=== PATIENT | female | born 1940 | race Caucasian/White ===

== ENCOUNTER 2017-06-08 17:38 | Inpatient (IN) | payer MEDICARE ==
[~2017-06-08] VITALS: Ht 167.6 cm; Wt 66.5 kg
[~2017-06-08 17:38] MED LIST: ASPI81 PO; ENAL20TA PO; HYDR12.56 PO; METF-324 PO; PRIL20TA2 PO; SYNT88TA PO
[2017-06-08 17:39] VITALS: BP 171/74; PULSE 81; RESP 18; TEMP 98.2; O2SAT 98
--- NOTE | 2017-06-08 18:22 | PD ---
Physical Exam Date Seen by Provider: Jun 08, 2017 Time Seen by Provider: 18:16 Narrative 76-year-old white female presents to emergency department with complaint of chest pain and foot swelling. She was seen by an orthopedist today to have a cast put on her left arm. She also had gone to an urgent care and was referred to the ER due to her chest pain and foot swelling. No associated nausea vomiting. No diaphoresis. Patient had a recent fall causing her left upper extremity fracture. Vital signs reviewed. Pt waiting for bed placement. Data Data Last Documented VS Vital Signs Date Time Temp Pulse Resp B/P (MAP) Pulse Ox O2 Delivery O2 Flow Rate FiO2 06/08/17 17:39 98.2 81 18 171/74 (106) 98 Room Air [facility] Medical Record Reviewed: No Supervised Visit with JF: Cole [place] Jun 08, 2017 18:22
--- NOTE | 2017-06-08 18:22 | PD ---
Physical Exam Date Seen by Provider: Jun 08, 2017 Time Seen by Provider: 18:16 Narrative 76-year-old white female presents to emergency department with complaint of chest pain and foot swelling. She was seen by an orthopedist today to have a cast put on her left arm. She also had gone to an urgent care and was referred to the ER due to her chest pain and foot swelling. No associated nausea vomiting. No diaphoresis. Patient had a recent fall causing her left upper extremity fracture. Vital signs reviewed. Pt waiting for bed placement. Data Data Last Documented VS Vital Signs Date Time Temp Pulse Resp B/P (MAP) Pulse Ox O2 Delivery O2 Flow Rate FiO2 06/08/17 17:39 98.2 81 18 171/74 (106) 98 Room Air [facility] Medical Record Reviewed: No Supervised Visit with JF: Cole [place] Jun 08, 2017 18:22
--- NOTE | 2017-06-08 18:22 | PD ---
Physical Exam Date Seen by Provider: Jun 08, 2017 Time Seen by Provider: 18:16 Narrative 76-year-old white female presents to emergency department with complaint of chest pain and foot swelling. She was seen by an orthopedist today to have a cast put on her left arm. She also had gone to an urgent care and was referred to the ER due to her chest pain and foot swelling. No associated nausea vomiting. No diaphoresis. Patient had a recent fall causing her left upper extremity fracture. Vital signs reviewed. Pt waiting for bed placement. Data Data Last Documented VS Vital Signs Date Time Temp Pulse Resp B/P (MAP) Pulse Ox O2 Delivery O2 Flow Rate FiO2 06/08/17 17:39 98.2 81 18 171/74 (106) 98 Room Air [facility] Medical Record Reviewed: No Supervised Visit with JF: Cole [place] Jun 08, 2017 18:22
[2017-06-08] MEDS ORDERED: HYDR12.57 PO (19:44)
[2017-06-08] MEDS ORDERED: METF500T PO (19:44)
[2017-06-08] MEDS ORDERED: NEXI20CA PO (19:44)
[2017-06-08] MEDS ORDERED: ASPI81CH CHEW (19:44)
[2017-06-08] MEDS ORDERED: AMLO5TAB2 PO (19:44)
[2017-06-08] MEDS ORDERED: ENAL20TA PO (19:44)
[2017-06-08] MEDS ORDERED: HYDR-3516 PO (19:44)
[2017-06-08] MEDS ORDERED: SODIUM CHLORIDE 0.9% FLUSH 10 ML FLUSH IVF PRN (19:45)
[2017-06-08 19:51] VITALS: BP 194/84; PULSE 84; RESP 18; O2SAT 100
[2017-06-08 19:55] VITALS: PULSE 82; RESP 18; O2SAT 100
--- NOTE | 2017-06-08 20:08 | PD ---
HPI Chief Complaint: Edema Time Seen by Provider: 19:41 Travel History International Travel<30 days: No Contact w/Intl Traveler<30days: No Traveled to known affect area: No History of Present Illness HPI C/O CHEST PAIN ONSET YESTERDAY, DESCRIBED A PRESSURE, INTERMITTENT, SUBSTERNAL, NONRADIATING. PATIENT ALSO C/O SWELLING TO [place]A [place] WE[place], NO REDNESS OR RASH NOTED. PATIENT DENIES ANY ALLEVIATING/AGGRAVATING FACTORS. PATIENT DENIES ABARCA/N/V/CP/ABDPAIN/ CHART AND RN NOTES REVIEWED PMHX: DM, HTN, PSHX: APPY/THYROID REMOVAL/GB/TUBAL LIGATION NO SMOKING HX PFSH Past Medical History Anxiety: No Depression: No Cancer: Yes (THYROIDECTOMY 5 YEARS AGO) Chemotherapy: No Diabetes: Yes GERD: Yes Genitourinary: No Hypertension: Yes Immune Disorder: No Kidney Stones: Yes (20 YEARS AGO) Musculoskeletal: No Neurologic: No Psychiatric: No Reproductive: No Respiratory: No Radiation Therapy: No Menopausal: Yes Tubal Ligation: Yes Past Surgical History Abdominal Surgery: Yes (APPENDECTOMY) Appendectomy: Yes Endocrine Surgery: Yes (THYROID ECTOMY) Social History Alcohol Use: No Tobacco Use: No Substance Use: No Allergies-Medications (Allergen,Severity, Reaction): Coded Allergies: No Known Allergies (Verified Allergy, Unknown, 06/08/17) Reported Meds & Prescriptions Reported Meds & Active Scripts Active Reported Hydrocodone-Acetaminophen 5-325 mg Tab 1 Tab PO Q4H PRN Nexium (Esomeprazole DR) 20 Mg Capdr 20 Mg PO DAILY Aspirin 81 Mg Chew 81 Mg CHEW DAILY Hydrochlorothiazide 12.5 Mg Cap 12.5 Mg PO BID Enalapril (Enalapril Maleate) 20 Mg Tab 20 Mg PO DAILY Amlodipine (Amlodipine Besylate) 5 Mg Tab 5 Mg PO DAILY Metformin (Metformin HCl) 500 Mg Tab 500 Mg PO BIDPC Review of Systems Except as stated in HPI: all other systems reviewed are Neg General / Constitutional: No: Fever Eyes: No: Visual changes HENT: No: Headaches Cardiovascular: Positive: Chest Pain or Discomfort, Edema (1+ TO KAMILA LE) Respiratory: No: Shortness of Breath Gastrointestinal: No: Abdominal Pain Genitourinary: No: Dysuria Musculoskeletal: No: Pain Skin: No Rash Neurologic: No: Weakness Psychiatric: No: Depression Endocrine: No: Polydipsia Hematologic/Lymphatic: No: Easy Bruising Physical Exam Narrative GENERAL: SKIN: Warm and dry. HEAD: Atraumatic. Normocephalic. EYES: Pupils equal and round. No scleral icterus. No injection or drainage. ENT: No nasal bleeding or discharge. Mucous membranes pink and moist. NECK: Trachea midline. No JVD. CARDIOVASCULAR: Regular rate and rhythm. RESPIRATORY: No accessory muscle use. Clear to auscultation. Breath sounds equal bilaterally. GASTROINTESTINAL: Abdomen soft, non-tender, nondistended. Hepatic and splenic margins not palpable. MUSCULOSKELETAL: Extremities without clubbing, cyanosis, or 1+ PITTING edema. No obvious deformities. NEUROLOGICAL: Awake and alert. No obvious cranial nerve deficits. Motor grossly within normal limits. Five out of 5 muscle strength in the arms and legs. Normal speech. PSYCHIATRIC: Appropriate mood and affect; insight and judgment normal. Data Data Last Documented VS Vital Signs Date Time Temp Pulse Resp B/P (MAP) Pulse Ox O2 Delivery O2 Flow Rate FiO2 06/08/17 22:07 89 16 190/86 (120) 100 Room Air 06/08/17 17:39 98.2 Orders Orders Electrocardiogram (06/08/17 18:22) Electrocardiogram (06/08/17 19:41) B-Type Natriuretic Peptide (06/08/17 19:41) Ckmb (Isoenzyme) Profile (06/08/17 19:41) Complete Blood Count With Diff (06/08/17 19:41) Comprehensive Metabolic Panel (06/08/17 19:41) Prothrombin Time / Inr (Pt) (06/08/17 19:41) Act Partial Throm Time (Ptt) (06/08/17 19:41) Troponin I (06/08/17 19:41) Lipase (06/08/17 19:41) Chest, Single Ap (06/08/17 19:41) Ecg Monitoring (06/08/17 19:41) Bilateral Bp Monitoring (06/08/17 19:41) Iv Access Insert/Monitor (06/08/17 19:41) Oximetry (06/08/17 19:41) Oxygen Administration (06/08/17 19:41) Sodium Chloride 0.9% Flush (Ns Flush) (06/08/17 19:45) Ct Pulmonary Angiogram (06/08/17 19:41) CKMB (06/08/17 18:15) CKMB% (06/08/17 18:15) Iohexol 350 Inj (Omnipaque 350 Inj) (06/08/17 21:26) Enoxaparin Inj (Lovenox Inj) (06/08/17 21:45) Amlodipine (Norvasc) (06/09/17 09:00) Aspirin Chew (Aspirin Chew) (06/09/17 09:00) Enalapril (Vasotec) (06/09/17 09:00) Hydrochlorothiazide (Microzide) (06/08/17 22:15) Acetamin-Hydrocod 325-5 Mg ([place] 5-325 (06/08/17 22:15) Pantoprazole (Protonix) (06/09/17 09:00) Insulin Aspart Supplemtl Scale (Novolog (06/09/17 08:00) Enoxaparin Inj (Lovenox Inj) (06/09/17 09:00) Place In Observation (06/08/17 ) Vital Signs (Adult) Q4H (06/08/17 22:08) Activity Oob Ad Lynn (06/08/17 22:08) Poly Packer And Heat Sealer / Telemetry .CONTINUOUS (06/08/17 22:08) Intake + Output MARANDA.QSHIFT (06/08/17 22:08) Sodium Chloride 0.9% Flush (Ns Flush) (06/08/17 22:15) Sodium Chloride 0.9% Flush (Ns Flush) (06/09/17 09:00) Ondansetron Inj (Zofran Inj) (06/08/17 22:15) Comprehensive Metabolic Panel (06/09/17 06:00) Case Management Consult (06/08/17 22:08) Naloxone Inj (Narcan Inj) (06/08/17 22:15) Magnesium Hydroxide Liq (Milk Of Magnesi (06/08/17 22:15) Sennosides (Senokot) (06/08/17 22:15) Bisacodyl Supp (Dulcolax Supp) (06/08/17 22:15) Lactulose Liq (Lactulose Liq) (06/08/17 22:15) Ckmb (Isoenzyme) Profile (06/08/17 22:08) Troponin I (06/08/17 22:08) Electrocardiogram (06/08/17 22:08) Electrocardiogram (06/09/17 01:08) Admit Order (Ed Use Only) (06/08/17 22:06) Diet Heart Healthy (06/09/17 Breakfast) Activity Bed Rest (06/08/17 22:06) Notify Dr: Other (06/08/17 22:06) CKMB (06/08/17 23:08) CKMB% (06/08/17 23:08) Ckmb (Isoenzyme) Profile (06/09/17 01:26) Troponin I (06/09/17 01:26) CKMB (06/09/17 01:26) CKMB% (06/09/17 01:26) Labs Laboratory Tests Test 06/08/17 18:15 White Blood Count 6.3 TH/MM3 Red Blood Count 4.55 MIL/MM3 Hemoglobin 12.4 GM/DL Hematocrit 36.8 % Mean Corpuscular Volume 80.8 FL Mean Corpuscular Hemoglobin 27.2 PG Mean Corpuscular Hemoglobin Concent 33.7 % Red Cell Distribution Width 14.5 % Platelet Count 244 TH/MM3 Mean Platelet Volume 8.2 FL Neutrophils (%) (Auto) 62.9 % Lymphocytes (%) (Auto) 26.0 % Monocytes (%) (Auto) 6.9 % Eosinophils (%) (Auto) 3.4 % Basophils (%) (Auto) 0.8 % Neutrophils # (Auto) 3.9 TH/MM3 Lymphocytes # (Auto) 1.6 TH/MM3 Monocytes # (Auto) 0.4 TH/MM3 Eosinophils # (Auto) 0.2 TH/MM3 Basophils # (Auto) 0.0 TH/MM3 CBC Comment DIFF FINAL Differential Comment Prothrombin Time 10.6 SEC Prothromb Time International Ratio 1.0 RATIO Activated Partial Thromboplast Time 25.9 SEC Blood Urea Nitrogen 16 MG/DL Creatinine 0.79 MG/DL Random Glucose 130 MG/DL Total Protein 7.2 GM/DL Albumin 3.9 GM/DL Calcium Level 9.2 MG/DL Alkaline Phosphatase 52 U/L Aspartate Amino Transf (AST/SGOT) 27 U/L Alanine Aminotransferase (ALT/SGPT) 23 U/L Total Bilirubin 0.7 MG/DL Sodium Level 134 MEQ/L Potassium Level 3.4 MEQ/L Chloride Level 99 MEQ/L Carbon Dioxide Level 26.8 MEQ/L Anion Gap 8 MEQ/L Estimat Glomerular Filtration Rate 71 ML/MIN Total Creatine Kinase 360 U/L Creatine Kinase MB 10.6 NG/ML Creatine Kinase MB % 2.9 % Troponin I LESS THAN 0.02 NG/ML B-Type Natriuretic Peptide 18 PG/ML Lipase 91 U/L MDM Medical Decision Making Medical Screen Exam Complete: Yes Emergency Medical Condition: Yes Medical Record Reviewed: Yes Interpretation(s) NSR 73, LOW VOLTAGE, NONSPEC STT CHANGES, NO STEMI PATTERN NOTED Differential Diagnosis PERICARDIAL EFFUSION V STEMI V NONSTEMI V PE V PNA V PTX Narrative Course NEG TROPONIN, CT CHEST NEG FOR PERICARDIAL EFFUSION SPECIALLY IN LIGHT OF LOW VOLTAGE EKG FINDING. CT CHEST DID SHOW A SMALL PE, PT AND FAMILY MADE AWARE AND UNDERSTAND NEED FOR ADMISSION. Critical Care Narrative CRITICAL CARE NOTE: With evaluation of the patient, labs, EKG, receipt of radiologic studies, administration of medications, reevaluation the patient and discussion of the patient with the admitting physicians, the total critical care time was [30] minutes. Time to perform other separately billable procedures was not included in the critical care time. Diagnosis Primary Impression: Pulmonary embolism Qualified Codes: I26.99 - Other pulmonary embolism without acute cor pulmonale Additional Impression: CHEST PAIN R/O ND Admitting Information Admitting Physician Requests: Martin Elizabeth MD Jun 08, 2017 20:08
[2017-06-08 20:47] LABS: AUTOMATED NEUTROPHIL # 3.9 TH/MM3 (1.8-7.7); BASOPHIL % 0.8 % (0.0-2.0); EOSINOPHIL # 0.2 TH/MM3 (0-0.4); EOSINOPHIL % 3.4 % (0.0-4.0); HEMATOCRIT 36.8 % (35.0-46.0); HEMOGLOBIN 12.4 GM/DL (11.6-15.3); LYMPHOCYTE # 1.6 TH/MM3 (1.0-4.8); MEAN CELL VOLUME 80.8 FL (80.0-100.0); MEAN CORPUSCULAR HEMOGLOBIN 27.2 PG (27.0-34.0); MEAN CORPUSCULAR HGB CONC 33.7 % (32.0-36.0); MEAN PLATELET VOLUME 8.2 FL (7.0-11.0); MONO % 6.9 % (0.0-8.0); MONOCYTE # 0.4 TH/MM3 (0-0.9); NEUT % 62.9 % (16.0-70.0); PLATELET COUNT 244 TH/MM3 (150-450); RED BLOOD COUNT 4.55 MIL/MM3 (4.00-5.30); RED CELL DISTRIBUTION WIDTH 14.5 % (11.6-17.2); WHITE BLOOD COUNT 6.3 TH/MM3 (4.0-11.0)
--- NOTE | 2017-06-08 20:48 | RADRPT ---
EXAM DATE/TIME: 06/08/2017 20:16 [facility] COMPARISON: No previous studies available for comparison. INDICATIONS : Chest pain. MEDICAL HISTORY : Hypertension. Diabetes mellitus type II. SURGICAL HISTORY : Tonsillectomy. ENCOUNTER: Initial ACUITY: 1 day PAIN SCORE: 2/10 LOCATION: chest midline. FINDINGS: A single view of the chest demonstrates the lungs to be symmetrically aerated without evidence of mas s, infiltrate or effusion. The cardiomediastinal contours are unremarkable. Osseous structures are intact. CONCLUSION: No acute disease. Lucas Arevalo MD on June 08, 2017 at 20:46 Board Certified Radiologist. This report was verified electronically.
[2017-06-08 21:00] LABS: PROTHROMBIN TIME - PATIENT 10.6 SEC (9.8-11.6)
[2017-06-08 21:09] LABS: ALBUMIN 3.9 GM/DL (3.4-5.0); ALT (GPT) 23 U/L (10-53); AST (GOT) 27 U/L (15-37); BICARBONATE 26.8 MEQ/L (21.0-32.0); BLOOD UREA NITROGEN 16 MG/DL (7-18); CALCIUM 9.2 MG/DL (8.5-10.1); CHLORIDE 99 MEQ/L (98-107); CREATININE 0.79 MG/DL (0.50-1.00); GLOMERULAR FILTRATION RATE 71 ML/MIN (>89); GLUCOSE,RANDOM 130 MG/DL (74-106); LIPASE 91 U/L (73-393); SODIUM (NA) 134 MEQ/L (136-145)
[2017-06-08 21:14] LABS: ALKALINE PHOSPHATASE 52 U/L (45-117); TOTAL BILIRUBIN ADULT 0.7 MG/DL (0.2-1.0); TOTAL PROTEIN 7.2 GM/DL (6.4-8.2); TROPONIN I LESS THAN 0.02 NG/ML (0.02-0.05)
[2017-06-08] MEDS ORDERED: IOHEXOL 350 MG/ML 10 ML VIAL (for RAD DIAG) IVCONTRAST ONE (21:26)
--- NOTE | 2017-06-08 21:37 | RADRPT ---
EXAM DATE/TIME: 06/08/2017 21:23 [facility] COMPARISON: CHEST SINGLE AP, June 08, 2017, 20:16. INDICATIONS : Swollen feet. IV CONTRAST: 67 cc Omnipaque 350 (iohexol) IV RADIATION DOSE: 23.38 CTDIvol (mGy) MEDICAL HISTORY : Hypertension. Diabetes mellitus type 2. SURGICAL HISTORY : None. ENCOUNTER: Initial ACUITY: 1 day PAIN SCALE: 0/10 LOCATION: chest TECHNIQUE: Volumetric scanning of the chest was performed using a pulmonary embolism protocol MIP images were re constructed. Using automated exposure control and adjustment of the mA and/or kV according to patien t size, radiation dose was kept as low as reasonably achievable to obtain optimal diagnostic quality images. DICOM format image data is available electronically for review and comparison. Follow-up recommendations for detected pulmonary nodules are based at a minimum on nodule size and pa tient risk factors according to Fleischner Society Guidelines. FINDINGS: PULMONARY ARTERIES: The main pulmonary artery right and left branch vessels are intact. There is a small area of filling defect and embolism in one of the right lower lobe pulmonary arteries. LUNGS: There is no consolidation or pneumothorax . No concerning pulmonary nodule is visualized. PLEURAE: There is no pleural thickening or pleural effusion. MEDIASTINUM: There is good visualization of the great vessels of the middle mediastinum. No evidence of mediastin al or hilar adenopathy/mass. MUSCULOSKELETAL: Within normal limits for patient age. MISCELLANEOUS: The visualized upper abdominal organs demonstrate no acute abnormality. There is a moderate-sized ret rocardiac hiatal hernia. CONCLUSION: 1. Mild pulmonary embolism in the right lower lobe pulmonary arteries. 2. No evidence of congestive heart failure. Lucas Arevalo MD on June 08, 2017 at 21:33 Board Certified Radiologist. This report was verified electronically.
[2017-06-08] MEDS ORDERED: ENOXAPARIN SODIUM 60 MG/0.6 ML SYRINGE SQ ONE (21:45)
[2017-06-08 22:07] VITALS: BP 190/86; PULSE 89; RESP 16; O2SAT 100
[2017-06-08] MEDS ORDERED: DEXTROSE 50% IN WATER 50 ML VIAL(D50) IV PUSH PRN (22:15)
[2017-06-08] MEDS ORDERED: ONDANSETRON HCL 4 MG/2 ML VIAL IVP PRN (22:15)
[2017-06-08] MEDS ORDERED: GLUCAGON 1 MG/ML VIAL OTHER PRN (22:15)
[2017-06-08] MEDS ORDERED: BISACODYL 10 MG SUPP RECTAL PRN (22:15)
[2017-06-08] MEDS ORDERED: SENNOSIDES 8.6 MG TAB PO PRN (22:15)
[2017-06-08] MEDS ORDERED: LACTULOSE SYRUP 20 GM/30 ML CUP PO PRN (22:15)
[2017-06-08] MEDS ORDERED: MAGNESIUM HYDROXIDE SUSP 30 ML CUP PO PRN (22:15)
[2017-06-08] MEDS ORDERED: NALOXONE HCL 0.4 MG/ML AMP IV PUSH PRN (22:15)
[2017-06-08] MEDS ORDERED: SODIUM CHLORIDE 0.9% FLUSH 10 ML FLUSH IV FLUSH PRN (22:15)
[2017-06-08] MEDS: HYDROCHLOROTHIAZIDE 12.5 MG CAP PO SCH (22:52)
--- NOTE | 2017-06-08 23:25 | HHI.HP ---
HPI Service [facility] Primary Care Physician No Primary Care Physician Admission Diagnosis PE, R/O NE Diagnoses: (1) Pulmonary embolism (2) Atypical chest pain Chief Complaint: Swelling in feet, chest pain Travel History International Travel<30 Days: No Contact w/Intl Traveler <30 Da: No Traveled to Known Affected Are: No History of Present Illness Written by Galina Grant, acting as scribe for Dr. Oliveros on 06/08/17 at 23:19. Reports that her feet are swollen. On Wednesday, she was at the airport and she fell while trying to get onto the escalator. She had a subsequent left arm fracture. She had to get a cast on her left arm. She says that her feet do not normally swell unless it's hot outside. Swelling began 06/07/17. Left forehead laceration with vidal. Multiple bruises on upper extremities due to fall. After 2 p.m., she was having her left arm casted and she had "a little" chest pain. She states she's had this previously and it is a dull, substernal pain that does not radiate. Pain not worsened with inspiration. She went to an Urgent Care Center to address her "puffy" feet. She reported the chest pain to the provider and she was referred to ED. Denies light headedness, dizziness, or dysuria. Recent plane travel. Denies taking stimulants and denies problems with indigestion. Review of Systems Except as stated in HPI: all other systems reviewed are Neg Past Family Social History Past Medical History Hypertension GERD Type 2 diabetes mellitus Thyroid Cancer s/p thyroidectomy Nephrolithiasis . Past Surgical History Thyroidectomy Cholecystectomy Appendectomy Tonsillectomy and Adenoidectomy BTL . Reported Medications Reported Meds & Active Scripts Active Reported Hydrocodone-Acetaminophen 5-325 mg Tab 1 Tab PO Q4H PRN Nexium (Esomeprazole DR) 20 Mg Capdr 20 Mg PO DAILY Aspirin 81 Mg Chew 81 Mg CHEW DAILY Hydrochlorothiazide 12.5 Mg Cap 12.5 Mg PO BID Enalapril (Enalapril Maleate) 20 Mg Tab 20 Mg PO DAILY Amlodipine (Amlodipine Besylate) 5 Mg Tab 5 Mg PO DAILY Metformin (Metformin HCl) 500 Mg Tab 500 Mg PO BIDPC Allergies: Coded Allergies: No Known Allergies (Verified Allergy, Unknown, 06/08/17) Active Ordered Medications Current Medications Sodium Chloride (NS Flush) 2 ml UNSCH PRN IVF FLUSH AFTER USING IV ACCESS; Start 06/08/17 at 19:45; Stop 06/08/17 at 22:11; Status DC Iohexol (Omnipaque 350 Inj) 67 ml STK-MED ONCE IVCONTRAST Last administered on 06/08/17 21:26; Start 06/08/17 at 21:26; Stop 06/08/17 at 21:27; Status DC Enoxaparin Sodium (Lovenox Inj) 60 mg ONCE ONCE SQ Last administered on 22:52; Start 06/08/17 at 21:45; Stop 06/08/17 at 21:46; Status DC Amlodipine Besylate (Norvasc) 5 mg DAILY PO ; Start 06/09/17 at 09:00 Aspirin (Aspirin Chew) 81 mg DAILY CHEW ; Start 06/09/17 at 09:00 Enalapril Maleate (Vasotec) 20 mg DAILY PO ; Start 06/09/17 at 09:00 Hydrochlorothiazide (Microzide) 12.5 mg BID PO Last administered on 06/08/17 22:52; Start 06/08/17 at 22:15 Acetaminophen/ Hydrocodone Bitart ([place] 5-325 Mg) 1 tab Q4H PRN PO PAIN; Start 06/08/17 at 22:15 Pantoprazole Sodium (Protonix) 20 mg DAILY PO ; Start 06/09/17 at 09:00 Insulin Aspart (NovoLOG SUPPLEMENTAL SCALE) 1 ACHS SLIDING SCALE SQ ; Start at 08:00 Enoxaparin Sodium (Lovenox Inj) 60 mg Q12H SQ ; Start 06/09/17 at 09:00 Sodium Chloride (NS Flush) 2 ml UNSCH PRN IV FLUSH FLUSH AFTER USING IV ACCESS ; Start 06/08/17 at 22:15 Sodium Chloride (NS Flush) 2 ml BID IV FLUSH ; Start 06/09/17 at 09:00 Ondansetron HCl (Zofran Inj) 4 mg Q6H PRN IVP NAUSEA OR VOMITING; Start at 22:15 Naloxone HCl (Narcan Inj) 0.4 mg UNSCH PRN IV PUSH SEE LABEL COMMENTS; Start 06/08/17 at 22:15 Magnesium Hydroxide (Milk Of Magnesia Liq) 30 ml Q12H PRN PO Mild constipation ; Start 06/08/17 at 22:15 Sennosides (Senokot) 17.2 mg Q12H PRN PO Moderate constipation; Start at 22:15 Bisacodyl (Dulcolax Supp) 10 mg DAILY PRN RECTAL SEVERE CONSITIPATION; Start 06/08/17 at 22:15 Lactulose (Lactulose Liq) 30 ml DAILY PRN PO SEVERE CONSITIPATION; Start 06/08 at 22:15 Dextrose (D50w (Vial) Inj) 50 ml UNSCH PRN IV PUSH HYPOGLYCEMIA - SEE COMMENTS ; Start 06/08/17 at 22:15 Glucagon (Glucagon Inj) 1 mg UNSCH PRN OTHER HYPOGLYCEMIA-SEE COMMENTS; Start 06/08/17 at 22:15 Family History Mother with breast cancer Father with NE age 57 y/o Grandmother with NE . Social History Tobacco: denies Alcohol: denies Illicit Drugs: denies . Physical Exam Vital Signs Vital Signs Date Time Temp Pulse Resp B/P (MAP) Pulse Ox O2 Delivery O2 Flow Rate FiO2 06/08/17 22:07 89 16 190/86 (120) 100 Room Air 06/08/17 19:55 82 18 100 Room Air 06/08/17 19:54 100 Room Air 06/08/17 19:51 84 18 194/84 (120) 100 Room Air 06/08/17 17:39 98.2 81 18 171/74 (106) 98 Room Air Physical Exam GENERAL: This is a well-nourished, well-developed patient, in no apparent distress. SKIN: Cool and dry. Ecchymoses under orbits bilaterally, ecchymoses on multiple areas upper extremities. HEAD: Atraumatic. Normocephalic. No temporal or scalp tenderness. EYES: Pupils equal round and reactive. Extraocular motions intact. No scleral icterus. No injection or drainage. ENT: Nose without bleeding, purulent drainage or septal hematoma. Airway patent. NECK: Trachea midline. No JVD. CARDIOVASCULAR: Regular rate and rhythm without murmurs, gallops, or rubs. Right ankle/foot with 1+ edema, left ankle/foot with trace edema. RESPIRATORY: Clear to auscultation. Breath sounds equal bilaterally. No wheezes , rales, or rhonchi. GASTROINTESTINAL: Abdomen soft, non-tender, nondistended. No guarding. MUSCULOSKELETAL: Extremities without clubbing, cyanosis. No calf tenderness. Sensation intact in distal extremities. Left forearm in cast. NEUROLOGICAL: Awake and alert. Motor and sensory grossly within normal limits. Normal speech. . Laboratory Laboratory Tests Test 06/08/17 18:15 White Blood Count 6.3 Red Blood Count 4.55 Hemoglobin 12.4 Hematocrit 36.8 Mean Corpuscular Volume 80.8 Mean Corpuscular Hemoglobin 27.2 Mean Corpuscular Hemoglobin Concent 33.7 Red Cell Distribution Width 14.5 Platelet Count 244 Mean Platelet Volume 8.2 Neutrophils (%) (Auto) 62.9 Lymphocytes (%) (Auto) 26.0 Monocytes (%) (Auto) 6.9 Eosinophils (%) (Auto) 3.4 Basophils (%) (Auto) 0.8 Neutrophils # (Auto) 3.9 Lymphocytes # (Auto) 1.6 Monocytes # (Auto) 0.4 Eosinophils # (Auto) 0.2 Basophils # (Auto) 0.0 CBC Comment DIFF FINAL Differential Comment Prothrombin Time 10.6 Prothromb Time International Ratio 1.0 Activated Partial Thromboplast Time 25.9 Blood Urea Nitrogen 16 Creatinine 0.79 Random Glucose 130 Total Protein 7.2 Albumin 3.9 Calcium Level 9.2 Alkaline Phosphatase 52 Aspartate Amino Transf (AST/SGOT) 27 Alanine Aminotransferase (ALT/SGPT) 23 Total Bilirubin 0.7 Sodium Level 134 Potassium Level 3.4 Chloride Level 99 Carbon Dioxide Level 26.8 Anion Gap 8 Estimat Glomerular Filtration Rate 71 Total Creatine Kinase 360 Creatine Kinase MB 10.6 Creatine Kinase MB % 2.9 Troponin I LESS THAN 0.02 B-Type Natriuretic Peptide 18 Lipase 91 Result Diagram: 06/08/17181406/08/171814 Imaging Last Impressions Chest X-Ray 06/08/171940 Signed Impressions: Service Date/Time: Thursday, June 08, 2017 20:16 - CONCLUSION: No acute disease. Lucas Arevalo MD CT Angiography 06/08/171940 Signed Impressions: Service Date/Time: Thursday, June 08, 2017 21:23 - CONCLUSION: 1. Mild pulmonary embolism in the right lower lobe pulmonary arteries. 2. No evidence of congestive heart failure. Lucas Arevalo MD . Caprini VTE Risk Assessment Caprini VTE Risk Assessment: Mod/High Risk (score >= 2) Caprini Risk Assessment Model Point Value = 1 Point Value = 2 Point Value = 3 Point Value = 5 Age 41-60 Minor surgery BMI > 25 kg/m2 Swollen legs Varicose veins or History of unexplained or recurrent spontaneous Oral contraceptives or hormone replacement Sepsis (< 1 month) Serious lung disease, including pneumonia (< 1 month) Abnormal pulmonary function Acute myocardial infarction Congestive heart failure (< 1 month) History of inflammatory bowel disease Medical patient at bed rest Age 61-74 Arthroscopic surgery Major open surgery (> 45 min) Laparoscopic surgery (> 45 min) Malignancy Confined to bed (> 72 hours) Immobilizing plaster cast Central venous access Age >= 75 History of VTE Family history of VTE Factor V Leiden Prothrombin [id number] Lupus anticoagulant Anticardiolipin antibodies Elevated serum homocysteine Heparin-induced thrombocytopenia Other congenital or acquired thrombophilia Stroke (< 1 month) Elective arthroplasty Hip, pelvis, or leg fracture Acute spinal cord injury (< 1 month) Prophylaxis Regimen Total Risk Factor Score Risk Level Prophylaxis Regimen 0-1 Low Early ambulation 2 Moderate Order ONE of the following: *Sequential Compression Device (SCD) *Heparin 5000 units SQ BID 3-4 Higher Order ONE of the following medications: *Heparin 5000 units SQ TID *Enoxaparin/Lovenox 40 mg SQ daily (WT < 150 kg, CrCl > 30 mL/min) *Enoxaparin/Lovenox 30 mg SQ daily (WT < 150 kg, CrCl > 10-29 mL/min) *Enoxaparin/Lovenox 30 mg SQ BID (WT < 150 kg, CrCl > 30 mL/min) AND/OR *Sequential Compression Device (SCD) 5 or more Highest Order ONE of the following medications: *Heparin 5000 units SQ TID (Preferred with Epidurals) *Enoxaparin/Lovenox 40 mg SQ daily (WT < 150 kg, CrCl > 30 mL/min) *Enoxaparin/Lovenox 30 mg SQ daily (WT < 150 kg, CrCl > 10-29 mL/min) *Enoxaparin/Lovenox 30 mg SQ BID (WT < 150 kg, CrCl > 30 mL/min) AND *Sequential Compression Device (SCD) Assessment and Plan Problem List: (1) Pulmonary embolism ICD Code: I26.99 - Other pulmonary embolism without acute cor pulmonale (2) Atypical chest pain ICD Code: R07.89 - Other chest pain (3) Type 2 diabetes mellitus ICD Code: E11.9 - Type 2 diabetes mellitus without complications Status: Chronic (4) Hypertension ICD Code: I10 - Essential (primary) hypertension Status: Chronic Assessment and Plan 76 y/o female sent [facility] for evaluation of chest pain and pedal edema. A mild right lower lobe PE was noted on CT PA in the ED. Pulmonary Embolism - A mild right lower lobe PE was noted on CT PA - Lovenox 60 mg q12h - Monitor vital signs q4h Atypical chest pain - serial EKGs and cardiac enzymes to r/o ACS - BNP normal at 18 - continuous cardiac telemetry to monitor for arrhythmias - heart healthy diet Type 2 DM - hold metformin due to contrast study to prevent kidney damage - Accu-Cheks before meals and at bedtime with low-dose NovoLog sliding scale coverage - Hypoglycemia treatment protocol ordered as needed for low blood sugar treatment - Monitor trends and blood glucose readings and adjust treatments as indicated Hypertension - resume home antihypertensive medications - monitor blood pressure trends and adjust treatment as indicated DVT prophylaxis - on Lovenox therapeutic dosing Discussed Condition With ER physician and patient . Physician Certification 2 Midnight Certification Type: Admission for Inpatient Services Order for Inpatient Services The services are ordered in accordance with Medicare regulations or non- Medicare payer requirements, as applicable. In the case of services not specified as inpatient-only, they are appropriately provided as inpatient services in accordance with the 2-midnight benchmark. Estimated LOS (days): 3 days is the estimated time the patient will need to remain in the hospital, assuming treatment plan goals are met and no additional complications. Post-Hospital Plan: Not yet determined Notes: This note was transcribed by hope Grant. I, Dr. Chet Oliveros personally performed the history, physical exam, and medical decision making; and confirmed the accuracy of the information in the transcribed note. Authenticated by Dr. Chet Oliveros on 06/09/17 at 07:12. Galina Grant Jun 08, 2017 23:25 Chet Oliveros MD Jun 09, 2017 07:12
[2017-06-08 23:43] LABS: TROPONIN I LESS THAN 0.02 NG/ML (0.02-0.05)
[2017-06-08 23:45] VITALS: BP 154/73
[2017-06-08] MEDS: ACETAMINOPHEN/HYDROcodone 325 MG/5 MG TAB PO PRN (23:49)
[2017-06-09] VITALS (9 sets, daily range): BP systolic 122–164; BP diastolic 58–74; PULSE 76–93; RESP 16–20; TEMP 97.9–98.9; O2SAT 97–99
[2017-06-09] MEDS ORDERED: POTASSIUM CHLORIDE 20 MEQ CONTROLLED RELEASE TAB PO ONE (01:00)
[2017-06-09 02:18] LABS: ALBUMIN 3.3 GM/DL (3.4-5.0); ALKALINE PHOSPHATASE 49 U/L (45-117); ALT (GPT) 22 U/L (10-53); AST (GOT) 29 U/L (15-37); BICARBONATE 22.2 MEQ/L (21.0-32.0); BLOOD UREA NITROGEN 15 MG/DL (7-18); CALCIUM 8.3 MG/DL (8.5-10.1); CHLORIDE 103 MEQ/L (98-107); CREATININE 0.69 MG/DL (0.50-1.00); GLOMERULAR FILTRATION RATE 83 ML/MIN (>89); GLUCOSE,RANDOM 191 MG/DL (74-106); SODIUM (NA) 137 MEQ/L (136-145); TOTAL BILIRUBIN ADULT 0.6 MG/DL (0.2-1.0); TOTAL PROTEIN 6.4 GM/DL (6.4-8.2); TROPONIN I LESS THAN 0.02 NG/ML (0.02-0.05)
[2017-06-09] MEDS: ACETAMINOPHEN/HYDROcodone 325 MG/5 MG TAB PO PRN ×4 (05:04→23:39)
[2017-06-09] MEDS: INSULIN ASPART SUPPLEMENTAL SCALE SQ SCH ×4 (08:00→20:59)
[2017-06-09] MEDS: amLODIPine BESYLATE 5 MG TAB PO SCH (08:34)
[2017-06-09] MEDS: PANTOPRAZOLE SOD 20 MG DELAYED RELEASE TAB PO SCH (08:34)
[2017-06-09] MEDS: HYDROCHLOROTHIAZIDE 12.5 MG CAP PO SCH ×2 (08:35→20:57)
[2017-06-09] MEDS: SODIUM CHLORIDE 0.9% FLUSH 10 ML FLUSH IV FLUSH SCH ×2 (08:35→20:56)
[2017-06-09] MEDS: ASPIRIN 81 MG CHEW TAB CHEW SCH (08:35)
[2017-06-09] MEDS: ENOXAPARIN SODIUM 60 MG/0.6 ML SYRINGE SQ SCH ×2 (08:36→20:58)
[2017-06-09] MEDS: ENALAPRIL MALEATE 10 MG TAB PO SCH (08:36)
--- NOTE | 2017-06-09 15:28 | EKG ---
Date Performed: 06/09/2017 Time Performed: 02:20:16 PTAGE: 76 years EKG: Sinus rhythm Inferior/lateral T wave changes are nonspecific Borderline ECG Compared to prior tracing no signific ant change DOCTOR: Candy Hoyt Interpretating Date/Time 06/09/2017 15:26:26
--- NOTE | 2017-06-09 15:31 | EKG ---
Date Performed: 06/08/2017 Time Performed: 23:41:42 PTAGE: 76 years EKG: Sinus rhythm ST DEVIATION AND MODERATE T-WAVE ABNORMALITY ABNORMAL ECG Compared to the PREVIOUS TRACING ST-T changes more prominent DOCTOR: Candy Hoyt Interpretating Date/Time 06/09/2017 15:31:13
--- NOTE | 2017-06-09 15:40 | EKG ---
Date Performed: 06/08/2017 Time Performed: 20:09:29 PTAGE: 76 years EKG: Sinus rhythm WITH OCCASIONAL VENTRICULAR PREMATURE COMPLEXES NONSPECIFIC T-WAVE ABNORMALITY BORDERLINE ECG PREVIOUS TRACING : 06/08/2017 18.32 Compared to prior tracing no significant change DOCTOR: Candy Hoyt Interpretating Date/Time 06/09/2017 15:40:20
--- NOTE | 2017-06-09 15:43 | EKG ---
Date Performed: 06/08/2017 Time Performed: 18:32:36 PTAGE: 76 years EKG: Sinus rhythm NONSPECIFIC T-WAVE ABNORMALITY BORDERLINE ECG PREVIOUS TRACING : 07/20/2011 16.55 Compared to prior tracing no significant change DOCTOR: Candy Hoyt Interpretating Date/Time 06/09/2017 15:42:18
--- NOTE | 2017-06-09 15:49 | HHI.PR ---
Subjective Remarks Pt tells me that she has no pain at this time. She tells me that she spends 6 months here and 6months in [place]. Doesn't have a PCP here. while getting her cast on wednesday (s/p fall at the airport at the escalator on wednesday) she experienced midsternal chest pains, never had an SD before that she knows of denies any worsening sob, n/v Denies any prior hx of blood clots Objective Vitals Vital Signs Date Time Temp Pulse Resp B/P (MAP) Pulse Ox O2 Delivery O2 Flow Rate FiO2 06/09/17 12:00 98.4 89 20 122/63 (82) 97 06/09/17 09:51 Room Air 06/09/17 08:00 98.6 85 20 164/68 (100) 98 06/09/17 04:00 98.4 89 16 146/71 (96) 99 06/09/17 01:10 85 06/09/17 00:30 Room Air 06/09/17 00:00 98.6 89 16 155/74 (101) 99 06/08/17 23:45 154/73 (100) 100 06/08/17 22:07 89 16 190/86 (120) 100 Room Air 06/08/17 19:55 82 18 100 Room Air 06/08/17 19:54 100 Room Air 06/08/17 19:51 84 18 194/84 (120) 100 Room Air 06/08/17 17:39 98.2 81 18 171/74 (106) 98 Room Air Result Diagram: 06/08/17 1815 06/09/17 0126 Imaging Last Impressions Chest X-Ray 06/08/171940 Signed Impressions: Service Date/Time: Thursday, June 08, 2017 20:16 - CONCLUSION: No acute disease. Lucas Arevalo MD CT Angiography 06/08/171940 Signed Impressions: Service Date/Time: Thursday, June 08, 2017 21:23 - CONCLUSION: 1. Mild pulmonary embolism in the right lower lobe pulmonary arteries. 2. No evidence of congestive heart failure. Lucas Arevalo MD Objective Remarks GENERAL: This is a well-nourished, well-developed patient, in no apparent distress. SKIN: Ecchymoses under orbits bilaterally, ecchymoses on multiple areas upper extremities. HEAD: vidal on top of head, incision healing w no signs of infection, dressing over EYES: Extraocular motions intact. ENT: Nose without drainage. Airway patent. NECK: Trachea midline. No JVD. CARDIOVASCULAR: Regular rate and rhythm without murmurs. Right ankle/foot with 1 + edema, left ankle/foot with trace edema. RESPIRATORY: Clear to auscultation. Breath sounds equal bilaterally. No wheezes , rales, or rhonchi. GASTROINTESTINAL: Abdomen soft, non-tender, nondistended. No guarding. MUSCULOSKELETAL: No calf tenderness. Sensation intact in distal extremities. Left forearm in cast. NEUROLOGICAL: Awake and alert. Motor and sensory grossly within normal limits. Normal speech. A/P Problem List: (1) Pulmonary embolism ICD Code: I26.99 - Other pulmonary embolism without acute cor pulmonale (2) Atypical chest pain ICD Code: R07.89 - Other chest pain (3) Type 2 diabetes mellitus ICD Code: E11.9 - Type 2 diabetes mellitus without complications Status: Chronic (4) Hypertension ICD Code: I10 - Essential (primary) hypertension Status: Chronic Assessment and Plan 76 y/o female sent from [facility] for evaluation of chest pain and pedal edema. A mild right lower lobe PE was noted on CT PA in the ED. Pulmonary Embolism - A mild right lower lobe PE was noted on CT PA - Lovenox 60 mg q12h. consider switching her one of the newer anticoagulants after eval from cards. walk test ordered. - Monitor vital signs q4h Atypical chest pain - CE neg x 3, pt has DM and HTN and being female these do put her at risk for atypical chest pain/ACS. Will consult cards for further eval and recs. - BNP normal at 18 - continuous cardiac telemetry to monitor for arrhythmias - heart healthy diet Type 2 DM - hold metformin due to contrast study to prevent kidney damage. Resume in 48 hours. - Accu-Cheks before meals and at bedtime with low-dose NovoLog sliding scale coverage - Hypoglycemia treatment protocol ordered as needed for low blood sugar treatment - Monitor trends and blood glucose readings and adjust treatments as indicated Hypertension - on home antihypertensive medications - monitor blood pressure trends and adjust treatment as indicated DVT prophylaxis - on Lovenox therapeutic dosing Discharge Planning I spoke w Dr. Connell and he will evaluate the patient. awaiting final recs. if no further intervention needed, switch pt to xarelto 15mg po BID x 21 days then transition to 20mg po daily. Maggie Bradshaw MD Jun 09, 2017 15:49
--- NOTE | 2017-06-09 17:16 | MB ---
cc: [facility] DATE OF CONSULTATION: 06/09/2017 REASON FOR CONSULTATION: Chest pain, coronary artery disease risk factors. HISTORY OF PRESENT ILLNESS The patient is a 76 year-old white female, followed by a primary care doctor up in [place], with a history of hypertension, diabetes, gastroesophageal reflux disease, thyroid cancer, who came to the hospital mainly due to feet swelling. Recently she sustained a fall at the [place] causing a left arm fracture. As she was getting the cast placed, she experienced a mild chest "ache" localized to her substernal region, lasting just a few seconds. There was no associated shortness of breath, nausea or diaphoresis. In retrospect she notes similar chest discomforts for years, invariably with emotional stress, never lasting more than a few seconds to a minute. Here in hospital chest CT angiogram has also showed evidence for pulmonary embolism. She denies pleurisy, dizziness, syncope, near-syncope, palpitations, pedal edema, paroxysmal nocturnal dyspnea. PAST MEDICAL HISTORY 1. Hypertension 2. Diabetes 3. Gastroesophageal reflux disease. 4. Thyroid cancer status post thyroidectomy. 5. History of kidney stones PAST SURGICAL HISTORY 1. Thyroidectomy. 2. Appendectomy 3. Tonsillectomy 4. Cholecystectomy. 5. Bilateral tubal ligation. CARDIAC MEDICATIONS AT HOME: 1. Amlodipine 5 mg daily. 2. Enalapril 20 mg daily. 3. Hydrochlorothiazide 12.5 mg b.i.d. 4. Aspirin 81 mg daily. ALLERGIES NO KNOWN DRUG ALLERGIES. FAMILY HISTORY The patient's father from myocardial infarction at age 57. SOCIAL HISTORY The patient denies any history of alcohol or tobacco abuse. REVIEW OF SYSTEMS: As in the history of present illness otherwise negative or noncontributory. She also denies headache, visual changes, unilateral weakness or numbness, abdominal pain, melena, dyspepsia, bright red blood per rectum. PHYSICAL EXAMINATION: On physical examination her blood pressure 122/63 with a pulse of 89, respirations 20. In general she is a well-developed, well-nourished white female in no acute distress HEENT examination: Jugular venous pressure is normal. Carotid pulses are 2+ bilaterally and without bruits. Chest: Examination of the chest reveals clear lung blackmon. Cardiac: On cardiac examination she has a regular rhythm and rate without S3-S4 or murmur. Abdomen: On abdominal examination she has a soft, nontender abdomen. Bowel sounds are present. There is no definite hepatosplenomegaly. Extremities: Examination of extremities reveals no clubbing, cyanosis or edema. LABORATORY DATA: Laboratory data includes normal CBC, potassium 3.5, BUN 15, creatinine 0.69, CK 379 with 2.5% MB fraction. Troponin less than 0.02. EKG shows sinus rhythm, nonspecific inferior and lateral T-wave abnormalities. Chest x-ray: Shows no acute disease. CT angiogram of the chest shows pulmonary embolism in the right lower lobe pulmonary arteries. IMPRESSION Overall atypical chest pains for myocardial ischemia in a 76-year-old white female with a history of diabetes, hypertension, gastroesophageal reflux disease. CT angiogram of the chest reportedly shows evidence for pulmonary embolism although her symptoms are also atypical for pulmonary embolism. She does have a number of risk factors for coronary disease including diabetes, hypertension, family history. EKG show overall nonspecific changes. Troponin levels are negative for myocardial infarction. She reports a fairly chronic history of similar chest discomforts which never last more than a few seconds and have no relationship to exertion. RECOMMENDATIONS 1. Check a 2-D echo to assess her left ventricular and valvular function. 2. Will set her up for nuclear stress test soon after discharge in our office. MD BIRD Lu/LYDIA /4:10 PM /4:57 PM SHELL
[2017-06-10 04:13] VITALS: BP 120/60; PULSE 70; RESP 16; TEMP 97.5; O2SAT 97
[2017-06-10] MEDS: ACETAMINOPHEN/HYDROcodone 325 MG/5 MG TAB PO PRN ×2 (04:13→09:09)
--- NOTE | 2017-06-10 07:16 | PD.CARD.PN ---
Subjective Subjective Remarks No CP, dyspnea, dizziness, palpitations. Slept well. Objective Medications Item Value Date Time Amlodipine 5 mg 06/09/17 0900 Besylate DAILY/PO 06/09/17 0834 (Norvasc) Aspirin 81 mg 06/09/17 09 (Aspirin Chew) DAILY/CHEW 06/09/17 0835 Enalapril Maleate 20 mg 06/09/17 09 (Vasotec) DAILY/PO 06/09/17 0836 Enoxaparin Sodium 60 mg 06/09/17 09 (Lovenox Inj) Q12H/SQ 06/09/172057 Hydrochlorothiazide 12.5 mg 06/08/172214 (Microzide) BID/PO 06/09/172056 Current Medications Medications (Trade) Dose Ordered Sig/Donna Route Start Time Stop Time Status Last Admin (Norvasc) 5 mg DAILY PO 06/09/17 09:00 06/09/17 08:34 (Aspirin Chew) 81 mg DAILY CHEW 06/09/17 09:00 06/09/17 08:35 (Vasotec) 20 mg DAILY PO 06/09/17 09:00 06/09/17 08:36 (Microzide) 12.5 mg BID PO 06/08/17 22:15 06/09/17 20:57 (Moseley 5-325 Mg) 1 tab Q4H PRN PO 06/08/17 22:15 06/10/17 04:13 (Protonix) 20 mg DAILY PO 06/09/17 09:00 06/09/17 08:34 (NovoLOG SUPPLEMENTAL SCALE) 1 ACHS SLIDING SCALE SQ 06/09/17 08:00 06/09/17 20:59 (Lovenox Inj) 60 mg Q12H SQ 06/09/17 09:00 06/09/17 20:58 (NS Flush) 2 ml UNSCH PRN IV FLUSH 06/08/17 22:15 (NS Flush) 2 ml BID IV FLUSH 06/09/17 09:00 06/09/17 20:56 (Zofran Inj) 4 mg Q6H PRN IVP 06/08/17 22:15 (Narcan Inj) 0.4 mg UNSCH PRN IV PUSH 06/08/17 22:15 (Milk Of Magnesia Liq) 30 ml Q12H PRN PO 06/08/17 22:15 (Senokot) 17.2 mg Q12H PRN PO 06/08/17 22:15 (Dulcolax Supp) 10 mg DAILY PRN RECTAL 06/08/17 22:15 (Lactulose Liq) 30 ml DAILY PRN PO 06/08/17 22:15 (D50w (Vial) Inj) 50 ml UNSCH PRN IV PUSH 06/08/17 22:15 (Glucagon Inj) 1 mg UNSCH PRN OTHER 06/08/17 22:15 Vital Signs / I&O Vital Signs Date Time Temp Pulse Resp B/P (MAP) Pulse Ox O2 Delivery O2 Flow Rate FiO2 06/10/17 04:13 97.5 70 16 120/60 (80) 97 06/09/17 23:18 98.9 76 16 123/58 (79) 98 06/09/17 20:05 89 06/09/17 20:05 97.9 92 16 142/71 (94) 97 06/09/17 19:45 Room Air 06/09/17 16:00 97.9 88 18 128/62 (84) 99 06/09/17 12:00 98.4 89 20 122/63 (82) 97 06/09/17 09:51 Room Air 06/09/17 08:04 93 06/09/17 08:00 98.6 85 20 164/68 (100) 98 I/O 06/09/17 06/09/17 06/09/17 06/10/17 06/10/17 06/10/17 07:00 15:00 23:00 07:00 15:00 23:00 Intake Total 300 ml Balance 300 ml Intake Oral 300 ml # Voids 2 # Bowel Movements 0 Physical Exam GENERAL: Well developed, well nourished. No acute distress. HEENT: Jugular venous pressure is normal. CHEST: Lungs clear to auscultation bilaterally. Unlabored respiratory effort. CARDIAC: Regular rate and rhythm without S3, S4, or murmur. ABDOMEN: Soft, nontender, no hepatosplenomegaly. Bowel sounds present. EXTREMITIES: No clubbing, cyanosis, or edema. Imaging Last 48 hours Impressions Chest X-Ray 06/08/17 194 Signed Impressions: Service Date/Time: Thursday, June 08, 2017 20:16 - CONCLUSION: No acute disease. Lucas Arevalo MD CT Angiography 06/08/171940 Signed Impressions: Service Date/Time: Thursday, June 08, 2017 21:23 - CONCLUSION: 1. Mild pulmonary embolism in the right lower lobe pulmonary arteries. 2. No evidence of congestive heart failure. Lucas Arevalo MD Assessment and Plan Problem List: (1) Atypical chest pain ICD Codes: R07.89 - Other chest pain Status: Acute Plan: Stable overnight. No further atypical CP. With her multiple CAD risk factors, will set her up for nuclear stress test as an outpatient in our [place] office within next couple weeks. OK to discharge from cardiac standpoint today. Echo pending; can be done as outpatient also. (2) Pulmonary embolism ICD Codes: I26.99 - Other pulmonary embolism without acute cor pulmonale Status: Acute Plan: Clinically, hemodynamically stable. OK from my standpoint to start anticoagulation therapy, Xarelto or Eliquis. (3) Hypertension ICD Codes: I10 - Essential (primary) hypertension Status: Chronic Plan: Stable. Mostly normotensive. Code Status full code Discussed Condition With patient Problem Qualifiers (1) Pulmonary embolism: (2) Hypertension: Qualified Codes: I10 - Essential (primary) hypertension Adeel Connell MD Jun 10, 2017 07:16
[2017-06-10] MEDS: INSULIN ASPART SUPPLEMENTAL SCALE SQ SCH (08:00)
[2017-06-10 08:03] VITALS: BP 128/57; PULSE 68; RESP 17; TEMP 97.9; O2SAT 98
[2017-06-10] MEDS: amLODIPine BESYLATE 5 MG TAB PO SCH (08:53)
[2017-06-10] MEDS: ASPIRIN 81 MG CHEW TAB CHEW SCH (08:53)
[2017-06-10] MEDS: ENOXAPARIN SODIUM 60 MG/0.6 ML SYRINGE SQ SCH (08:53)
[2017-06-10] MEDS: PANTOPRAZOLE SOD 20 MG DELAYED RELEASE TAB PO SCH (08:53)
[2017-06-10] MEDS: SODIUM CHLORIDE 0.9% FLUSH 10 ML FLUSH IV FLUSH SCH (08:53)
[2017-06-10] MEDS: ENALAPRIL MALEATE 10 MG TAB PO SCH (08:53)
[2017-06-10] MEDS: HYDROCHLOROTHIAZIDE 12.5 MG CAP PO SCH (08:53)
[2017-06-10 09:12] LABS: HEMATOCRIT 33.2 % (35.0-46.0); HEMOGLOBIN 11.2 GM/DL (11.6-15.3)
[2017-06-10] MEDS ORDERED: APIX5TAB PO (10:50)
[2017-06-10 12:14] LABS: CHOLESTEROL/ HDL RATIO 2.24 RATIO; HDL CHOLESTEROL 55.3 MG/DL (40.0-60.0)
--- NOTE | 2017-06-10 12:16 | HHI.DS ---
Discharge Summary Admission Date Jun 08, 2017 at 22:45 Discharge Date: Jun 10, 2017 Admitting Diagnosis PE, R/O NH (1) Pulmonary embolism ICD Code: I26.99 - Other pulmonary embolism without acute cor pulmonale Status: Acute (2) Atypical chest pain ICD Code: R07.89 - Other chest pain Status: Acute (3) Type 2 diabetes mellitus ICD Code: E11.9 - Type 2 diabetes mellitus without complications Status: Chronic (4) Hypertension ICD Code: I10 - Essential (primary) hypertension Status: Chronic Procedures No invasive procedures. Brief History - From Admission Written by Galina Grant, acting as scribe for Dr. Oliveros on 06/08/17 at 23:19. Reports that her feet are swollen. On Wednesday, [place] the airport and she fell while trying to get onto the escalator. She had a subsequent left arm fracture. She had to get a cast on her left arm. She says that her feet do not normally swell unless it's hot outside. Swelling began 06/07/17. Left forehead laceration with vidal. Multiple bruises on upper extremities due to fall. After 2 p.m., she was having her left arm casted and she had "a little" chest pain. She states she's had this previously and it is a dull, substernal pain that does not radiate. Pain not worsened with inspiration. She went to an [facility]gent [facility] to address her "puffy" feet. She reported the chest pain to the provider and she was referred to ED. Denies light headedness, dizziness, or dysuria. Recent plane travel. Denies taking stimulants and denies problems with indigestion. CBC/BMP: 06/10/17 0538 06/09/17 0126 Significant Findings Laboratory Tests Test 06/08/17 18:15 06/08/17 23:08 06/09/17 01:26 06/10/17 05:38 Random Glucose 130 MG/DL (74-106) 191 MG/DL (74-106) Sodium Level 134 MEQ/L (136-145) Potassium Level 3.4 MEQ/L (3.5-5.1) Estimat Glomerular Filtration Rate 71 ML/MIN (>89) 83 ML/MIN (>89) Total Creatine Kinase 360 U/L (26-192) 379 U/L (26-192) 358 U/L (26-192) Creatine Kinase MB 10.6 NG/ML (0.5-3.6) 9.3 NG/ML (0.5-3.6) 7.9 NG/ML (0.5-3.6) Troponin I LESS THAN 0.02 NG/ML LESS THAN 0.02 NG/ML LESS THAN 0.02 NG/ML Albumin 3.3 GM/DL (3.4-5.0) Calcium Level 8.3 MG/DL (8.5-10.1) Hemoglobin 11.2 GM/DL (11.6-15.3) Hematocrit 33.2 % (35.0-46.0) Imaging Last Impressions Chest X-Ray 06/08/171940 Signed Impressions: Service Date/Time: Thursday, June 08, 2017 20:16 - CONCLUSION: No acute disease. Lucas Arevalo MD CT Angiography 06/08/171940 Signed Impressions: Service Date/Time: Thursday, June 08, 2017 21:23 - CONCLUSION: 1. Mild pulmonary embolism in the right lower lobe pulmonary arteries. 2. No evidence of congestive heart failure. Lucas Arevalo MD PE at Discharge GENERAL: This is a well-nourished, well-developed patient, in no apparent distress. Alert and oriented 3. SKIN: Ecchymoses under orbits bilaterally, ecchymoses on multiple areas upper extremities. HEAD: vidal on top of head, incision healing w no signs of infection, dressing over. Wound appears to be healing nicely. No signs of infection. EYES: Extraocular motions intact. ENT: Nose without drainage. Airway patent. NECK: Trachea midline. No JVD. CARDIOVASCULAR: Regular rate and rhythm without murmurs. Trace edema bilaterally. Much improved. RESPIRATORY: Clear to auscultation. Breath sounds equal bilaterally. No wheezes , rales, or rhonchi. GASTROINTESTINAL: Abdomen soft, non-tender, nondistended. No guarding. MUSCULOSKELETAL: No calf tenderness. Sensation intact in distal extremities. Left forearm in cast. NEUROLOGICAL: Awake and alert. Motor and sensory grossly within normal limits. Normal speech. Pt update on day of discharge pt seen this morning at 11 AM. Says she is feeling well. Denies any chest pain or shortness of breath. Reports bilateral lower extremity edema has resolved. He does like going home. Discussed with daughter at bedside. Hospital Course 76 y/o female sent from Urgent [facility] Center for evaluation of chest pain and pedal edema. A mild right lower lobe PE was noted on CT PA in the ED. patient was treated with subcutaneous Lovenox 1 mg/kg twice daily. She had improvement of bilateral lower extremity edema. She'll be discharged home on Eliquis. She was instructed to find primary care doctor to follow up with. For her left arm fracture, she will follow-up with orthopedics as outpatient. Orthopedics will also remove vidal on left forehead. Cardiology was consulted due to chest pain, risk factors. She will follow-up with cardiology as outpatient for stress test. Pulmonary Embolism - A mild right lower lobe PE was noted on CT PA - Lovenox 60 mg q12h. consider switching her one of the newer anticoagulants after eval from cards. walk test ordered. - Monitor vital signs q4h -Discharge home on Eliquis 10 mg twice daily for 7 days, 5 mg by mouth twice daily thereafter. Discussed with daughter at bedside. Discussed with patient. Both patient and daughter convey understanding. Atypical chest pain - CE neg x 3, pt has DM and HTN and being female these do put her at risk for atypical chest pain/ACS. Will consult cards for further eval and recs. - BNP normal at 18 - continuous cardiac telemetry to monitor for arrhythmias - heart healthy diet -Follow up with cardiology as outpatient for stress test. Appreciate cardiology assistance. Type 2 DM - hold metformin due to contrast study to prevent kidney damage. Resume in 48 hours. - Accu-Cheks before meals and at bedtime with low-dose NovoLog sliding scale coverage - Hypoglycemia treatment protocol ordered as needed for low blood sugar treatment - Monitor trends and blood glucose readings and adjust treatments as indicated -Blood glucose stable. Continue diabetic diet at home. Hypertension - on home antihypertensive medications - monitor blood pressure trends and adjust treatment as indicated DVT prophylaxis - on Lovenox therapeutic dosing. Discharge Planning Discharge home. Follow-up with Dr. Connell as outpatient. Patient will get primary care. Pt Condition on Discharge: Good Discharge Disposition: Discharge Home Discharge Time: > 30 minutes Discharge Instructions DIET: Follow Instructions for: Diabetic Diet Activities you can perform: Regular-No Restrictions Follow up Referrals: Cardiology - 1 Week with Adeel Connell MD PCP Follow-up - 1 Week New Medications: Apixaban (Eliquis) 5 Mg Tab 5 MG PO BID for Blood Clot Prevention, #60 TAB 0 Refills Start this regimen after completing intial week of higher dose. Apixaban (Eliquis) 5 Mg Tab 10 MG PO BID for Blood Clot Prevention for 7 Days, #28 TAB 0 Refills Continued Medications: Amlodipine (Amlodipine) 5 Mg Tab 5 MG PO DAILY for Blood Pressure Management, #30 TAB 0 Refills Aspirin (Aspirin) 81 Mg Chew 81 MG CHEW DAILY, TAB 0 Refills Enalapril (Enalapril) 20 Mg Tab 20 MG PO DAILY, #30 TAB [address] (Nexium) 20 Mg Capdr 20 MG PO DAILY, CAP 0 Refills Hydrochlorothiazide (Hydrochlorothiazide) 12.5 Mg Cap 12.5 MG PO BID, #60 CAP 0 Refills Hydrocodone-Acetaminophen (Hydrocodone-Acetaminophen) 5-325 mg Tab 1 TAB PO Q4H PRN for PAIN, TAB 0 Refills Metformin (Metformin) 500 Mg Tab 500 MG PO BIDPC for Blood Sugar Management, #60 TAB 0 Refills Chet Oliveros MD Jun 10, 2017 12:16
== END 2017-06-10 12:13 | disposition home or self-care (01) | DRG 176 ==
LOC: NEPD 17:38 → NEDA 22:11 → OBSVTOIN 22:45 → N04A 06-09 00:05
PROVIDERS: ADMIT Internal Medicine; ATTEND Internal Medicine
DX: I26.99 Other pulmonary embolism without acute cor pulmonale (principal); E11.9 Type 2 diabetes mellitus without complications; I10 Essential (primary) hypertension; E89.0 Postprocedural hypothyroidism; K21.9 Gastro-esophageal reflux disease without esophagitis; Z91.81 History of falling; Z85.850 Personal history of malignant neoplasm of thyroid; Z79.84 Long term (current) use of oral hypoglycemic drugs
CPT/HCPCS: 71010; 71275; 80053; 80061; 82550; 82552; 82948; 83690; 83880; 84484; 85014; 85018; 85025; 85610; 85730; 93005; 94620; J1650; J1815; Q9967